=== PATIENT | female | born 2000 | race Caucasian/White ===

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

== ENCOUNTER 2023-08-08 13:51 | Emergency (ER) | payer SELFPAY ==
[2023-08-08 13:59] VITALS: BP 117/75; PULSE 98; RESP 18; TEMP 98.5; BMI 23.8
[2023-08-08] MEDS ORDERED: ACETAMINOPHEN 500 MG TABLET (FP) PO ONE (14:17)
[2023-08-08] MEDS ORDERED: IBUPROFEN 400 MG TABLET (FP) PO ONE (14:31)
[2023-08-08] MEDS ORDERED: LIDOCAINE 4% PATCH TP ONE (14:32)
[2023-08-08] MEDS: LIDOCAINE 4% PATCH TP ONE (14:49)
[2023-08-08] MEDS: IBUPROFEN 400 MG TABLET (FP) PO ONE (14:50)
[2023-08-08] MEDS ORDERED: LIDOCAINE PATCH REMOVAL MC SCH (22:00)
== END 2023-08-08 14:52 | disposition home or self-care (01) ==
LOC: JER 13:51
DX: M54.2 Cervicalgia (principal); W11.XXXA Fall on and from ladder, initial encounter
CPT/HCPCS: 99283-25